=== PATIENT | female | born 1980 | race Caucasian/White ===

== ENCOUNTER 2017-11-28 22:22 | Emergency (ER) | payer SELFPAY ==
[2017-11-28] MEDS ORDERED: predniSONE 20 MG Tab PO ONE (23:15)
[2017-11-28] MEDS ORDERED: Cephalexin 500 MG Cap PO ONE (23:15)
--- NOTE | 2017-11-28 23:18 | EDM.PDOC ---
ED HPI GENERAL MEDICAL PROBLEM - General Chief Complaint: Skin Complaint Stated Complaint: RASH ON ANKLE Time Seen by Provider: 11/28/17 23:03 Source of Information: Reports: Patient, RN Notes Reviewed - History of Present Illness INITIAL COMMENTS - FREE TEXT/NARRATIVE: 36 show female comes in with severe rash left lower leg. This first came on about a week ago. This has been spreading and has been severely itchy the past several days. She has spent a lot of time hiking outdoors this past week so realizes that could be poison sha or some type similar contact dermatitis. No other areas of rash or itchiness. Left Lower Leg Pain Score (Numeric/FACES): 2 - Related Data Allergies Allergy/AdvReac Type Severity Reaction Status Date / Time No Known Allergies Allergy Verified 04/26/14 14:39 Home Meds: Home Meds Albuterol Sulfate [Proventil Hfa] 1 puff INH ASDIRECTED 11/28/17 [History] Cephalexin 500 mg PO Q8HR #20 capsule 11/28/17 [Rx] Past Medical History - Past Health History Medical/Surgical History: Denies Medical/Surgical History Respiratory History: Reports: Asthma, Other (See Below) Other Respiratory History: seasonal allergies - Past Surgical History HEENT Surgical History: Reports: Tonsillectomy Social & Family History - Tobacco Use Smoking Status *Q: Current Every Day Smoker Years of Tobacco use: 14 Packs/Tins Daily: 0.5 - Caffeine Use Caffeine Use: Reports: Coffee, Soda - Recreational Drug Use Recreational Drug Use: No ED ROS GENERAL - Review of Systems Review Of Systems: See Below Constitutional: Denies: Fever, Chills HEENT: Reports: No Symptoms Respiratory: Denies: Shortness of Breath Cardiovascular: Denies: Chest Pain GI/Abdominal: Denies: Abdominal Pain Musculoskeletal: Denies: Joint Pain Skin: Reports: Rash Neurological: Denies: Numbness, Tingling ED EXAM, SKIN/RASH Exam: See Below General Appearance: Alert, Mild Distress Head: Atraumatic Neck: Supple Respiratory/Chest: No Respiratory Distress Neurological: Alert, Oriented, No Motor/Sensory Deficits Skin: Rash (Scattered areas of rash left lower leg anteriorly and also medial and lateral. Some areas of linear streaking type distribution. This is somewhat raised. Can otherwise totally clear.) Course - Vital Signs Last Recorded V/S: Last Vital Signs Temp 98.1 F 11/28/17 22:50 Pulse 99 11/28/17 22:50 Resp 20 11/28/17 22:50 BP 152/83 H 11/28/17 22:50 Pulse Ox 100 11/28/17 22:50 - Orders/Labs/Meds Meds: Medications Discontinued Medications Generic Name Dose Route Start Last Admin Trade Name Biju PRN Reason Stop Dose Admin Cephalexin 500 mg 11/28/17 23:15 11/28/17 23:21 Keflex PO 11/28/17 23:16 500 mg ONETIME ONE Administration Prednisone 40 mg 11/28/17 23:15 11/28/17 23:22 Prednisone PO 11/28/17 23:16 40 mg ONETIME ONE Administration - Re-Assessments/Exams Free Text/Narrative Re-Assessment/Exam: 11/29/17 15:28 The character of rashes very strongly compatible with contact dermatitis, poison sha, poison oak or something of that nature. Have given prednisone 40 mg by mouth, discharge instructions as documented. Departure - Departure Time of Disposition: 23:15 Disposition: Home, Self-Care 01 Condition: Fair Clinical Impression: Contact dermatitis due to poison sha - Discharge Information Prescriptions: Cephalexin 500 mg PO Q8HR #20 capsule Instructions: Contact Dermatitis, [id number] Referrals: George Mccollum MD [Primary Care Provider] - Forms: ED Department Discharge Additional Instructions: prednisone 40 mg daily for 3 days, than 20 mg daily for 2 days, triamcinalone cream 2 to 3 times daily until rash resolves. claritin 10 mg daily, cephalexin 500 mg 3 times daily for 1 week.
== END 2017-11-28 23:41 | disposition home or self-care (01) ==
LOC: JD.ED 22:22
DX: L23.7 Allergic contact dermatitis due to plants, except food (principal); F17.210 Nicotine dependence, cigarettes, uncomplicated
CPT/HCPCS: 99283; A9270

== ENCOUNTER 2017-11-30 18:13 | Emergency (ER) | payer SELFPAY ==
[2017-11-30] MEDS ORDERED: Sodium Chloride 0.9% 10 ML Syringe FLUSH PRN (19:15)
--- NOTE | 2017-11-30 20:36 | EDM.PDOC ---
ED HPI GENERAL MEDICAL PROBLEM - General Chief Complaint: Skin Complaint Stated Complaint: JOHANNY BLANCA ANKLE SWOLLEN Time Seen by Provider: 11/30/17 18:56 Source of Information: Reports: Patient History Limitations: Reports: No Limitations - History of Present Illness INITIAL COMMENTS - FREE TEXT/NARRATIVE: 36-year-old female presents for evaluation and treatment of an erythematous blistering rash to the bilateral legs. Patient reports proximally 10 days ago she was out hiking in [place]. She states she was hiking through some brush. Of note she was hiking with her sister who does not have any rash. She states approximately 4 days later she developed a pruritic, erythematous rash to the left ankle. She was seen in the ED on November 28. Prescribed triamcinolone cream, prednisone and Keflex. She did not take the prednisone as she does not like the way it makes her feel. She has been taking the Keflex and using the triamcinolone cream as prescribed. She presented to the walk-in clinic today but was sent to us for further management and care. Patient reports the initial rash started to her left ankle. Reports it initially started as a pruritic, erythematous rash. Present now for approximately for 5 days. Over the last day she has no developed large blisters that are weeping a clear serous fluid. She is also having involvement to the right leg that is extending up her 5. Sits rashes no longer pruritic but is now painful. She also reports swelling to the left foot. She denies any fevers, chills, nausea or vomiting. She did she's never had anything like this before. Primary care provider is Dr. Wesley left lower leg Pain Score (Numeric/FACES): 6 - Related Data Allergies Allergy/AdvReac Type Severity Reaction Status Date / Time No Known Allergies Allergy Verified 11/30/17 18:34 Home Meds: Home Meds Albuterol Sulfate [Proventil Hfa] 1 puff INH ASDIRECTED 11/28/17 [History] Cephalexin 500 mg PO Q8HR #20 capsule 11/28/17 [Rx] Doxycycline [Vibramycin] 100 mg PO BID #19 cap 11/30/17 [Rx] LORazepam [Ativan] 0.5 mg PO Q6H PRN #20 tab 11/30/17 [Rx] Triamcinolone Acetonide [Triamcinolone Acetonide 0.025%] 15 gm .XX ASDIRECTED PRN 11/30/17 [History] predniSONE [Prednisone] 40 mg PO DAILY #40 tablet 11/30/17 [Rx] Past Medical History - Past Health History Medical/Surgical History: Denies Medical/Surgical History Respiratory History: Reports: Asthma, Other (See Below) Other Respiratory History: seasonal allergies Psychiatric History: Reports: Anxiety - Past Surgical History HEENT Surgical History: Reports: Tonsillectomy Social & Family History - Family History Family Medical History: Noncontributory - Tobacco Use Smoking Status *Q: Current Every Day Smoker Years of Tobacco use: 10 Packs/Tins Daily: 0.2 - Caffeine Use Caffeine Use: Reports: Coffee - Recreational Drug Use Recreational Drug Use: No ED ROS GENERAL - Review of Systems Review Of Systems: See Below Constitutional: Denies: Fever, Chills GI/Abdominal: Denies: Nausea, Vomiting Skin: Reports: Rash (left ankle and sporadically to the right leg, large blisters present. Weeping a serous-like fluid.) ED EXAM, SKIN/RASH Exam: See Below Exam Limited By: No Limitations General Appearance: Alert, WD/WN, No Apparent Distress Respiratory/Chest: No Respiratory Distress Cardiovascular: Normal Peripheral Pulses, Regular Rate, Rhythm Peripheral Pulses: 2+: Posterior Tibial (L), Posterior Tibial (R), Dorsalis Pedis (L), Dorsalis Pedis (R) Extremities: Normal Inspection, Other (mild swelling to the left foot) Neurological: Alert, Oriented, Normal Cognition Psychiatric: Normal Affect, Normal Mood Location, Skin: Lower Extremity, Right, Lower Extremity, Left Characteristics: Bullous (Approximately nickel size blisters to the left ankle with surrounding erythema. Increased warmth appreciated. Weeping a clear serous fluid. Approximately 8 large blisters present. Multiple smaller blisters. Negative Nikolsky sign. Right leg has several smaller bullous-like lesions sporadically from the right ankle to the right medial thigh.) Course - Vital Signs Last Recorded V/S: Last Vital Signs Temp 98.3 F 11/30/17 18:27 Pulse 80 11/30/17 21:35 Resp 18 11/30/17 21:35 BP 150/72 H 11/30/17 21:35 Pulse Ox 98 11/30/17 21:35 - Orders/Labs/Meds Orders: Active Orders 24 hr Category Date Time Status Peripheral IV Care [RC] . DIRECTED Care 11/30/17 19:15 Active Peripheral IV Insertion Adult [OM.PC] Routine Oth 11/30/17 19:15 Ordered Labs: Laboratory Tests 11/30/17 11/30/17 Range/Units 19:37 19:37 WBC 11.40 H (3.98-10.04) K/mm3 RBC 4.66 (3.98-5.22) M/mm3 Hgb 14.2 (11.2-15.7) gm/L Hct 43.8 (34.1-44.9) % MCV 94.0 (79.4-94.8) fl MCH 30.5 (25.6-32.2) pg MCHC 32.4 (32.2-35.5) g/dl RDW Std Deviation 44.9 (36.4-46.3) fL Plt Count 380 H (182-369) K/mm3 MPV 9.4 (9.4-12.3) fl Neutrophils % (Manual) 76 H (40-60) % Band Neutrophils % 0 (0-10) % Lymphocytes % (Manual) 20 (20-40) % Atypical Lymphs % 0 % Monocytes % (Manual) 3 (2-10) % Eosinophils % (Manual) 1 (0.7-5.8) % Basophils % (Manual) 0 L (0.1-1.2) Platelet Estimate Adequate RBC Morph Comment Normal Sodium 140 (136-145) mEq/L Potassium 4.3 (3.5-5.1) mEq/L Chloride 105 (98-107) mEq/L Carbon Dioxide 25 (21-32) mEq/L Anion Gap 14.3 (5-15) BUN 13 (7-18) mg/dL Creatinine 0.9 (0.55-1.02) mg/dL Est Cr Clr Drug Dosing 84.03 mL/min Estimated GFR (MDRD) > 60 (>60) mL/min BUN/Creatinine Ratio 14.4 (14-18) Glucose 96 (74-106) mg/dL Calcium 8.6 (8.5-10.1) mg/dL Total Bilirubin 0.4 (0.2-1.0) mg/dL AST 16 (15-37) U/L ALT 14 (14-59) U/L Alkaline Phosphatase 65 (46-116) U/L C-Reactive Protein 0.5 (<1.0) mg/dL Total Protein 7.4 (6.4-8.2) g/dl Albumin 3.6 (3.4-5.0) g/dl Globulin 3.8 gm/dL Albumin/Globulin Ratio 1.0 (1-2) Meds: Medications Discontinued Medications Generic Name Dose Route Start Last Admin Trade Name Freq PRN Reason Stop Dose Admin Doxycycline Hyclate 100 mg 11/30/17 21:08 11/30/17 21:14 Vibramycin PO 11/30/17 21:09 100 mg ONETIME ONE Administration Prednisone 40 mg 11/30/17 21:08 11/30/17 21:14 Prednisone PO 11/30/17 21:09 40 mg ONETIME ONE Administration Sodium Chloride 10 ml 11/30/17 19:15 11/30/17 19:41 Saline Flush FLUSH 10 ml ASDIRECTED PRN Administration Keep Vein Open - Re-Assessments/Exams Free Text/Narrative Re-Assessment/Exam: 11/30/17 21:06 Dr. Shiloh Tabares has come and seen the patient. Concerned that this is pemphigoid. Recommended obtaining lab work. as this was change or shift when she saw him recommended getting an opinion from Dr. Barton who is now on. Dr. Barton has come into the patient. He agrees with initial treatment plan and that this likely could be pemphigoid. Have attempted to contact dermatology in [place], both [facility] and [facility]. 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 Informed patient that she likely needs steroids. She is very hesitant to start these due to concerns over anxiety. Would like me to discuss with dermatology if she needs steroids. I discussed the case Dr. Pineda who is a business banking officer associated with [employer] in [place]. I was able to send him some pictures of the patient's. Working diagnosis is an exposure to plants versus pemphigoid. Recommended prednisone 40 mg daily until seen by dermatology. States that this patient needs to see dermatology this week. She needs a biopsy. Recommended involving her primary care provider as well to help with any dermatology referral as needed. I discussed my conversation with the patient. Her labs show a slightly elevated white blood cell count but CRP is within normal limits. she is agreeable to start on prednisone. I will give her some Ativan as needed. Plan will be to send a referral an attempt to get her an appointment with dermatology in the morning. Will also notify her primary care provider in the morning. I will also switch her from Keflex to doxycycline due to concerns over the surrounding erythema increasing. Dosage of prednisone and doxycycline given in the ED tonight Discharge instructions as documented. Departure - Departure Time of Disposition: 21:09 Disposition: Home, Self-Care 01 Condition: Fair Clinical Impression: Blistering rash - Discharge Information Prescriptions: Doxycycline [Vibramycin] 100 mg PO BID #19 cap LORazepam [Ativan] 0.5 mg PO Q6H PRN #20 tab PRN Reason: Anxiety predniSONE [Prednisone] 40 mg PO DAILY #40 tablet Instructions: Rash Referrals: George Mccollum MD [Primary Care Provider] - Naila Abbott MD [Ordering Only Provider] - Forms: ED Department Discharge Additional Instructions: take the doxycycine 1 cap bid x 10 days. Stop the cephalexin. Prednisone 40 mg by mouth daily. Take 40 mg until tapered off by dermatology. you need to see dermatology this week. Need to have a biopsy done this week. [facility] is [phone]. We will attempt to call them in the morning to make an appointment for you. We will attempt to notify Dr. Wesley tomorrow so he is aware of your urgent need to see dermatology as well and he can assist as needed. Ativan 1 tab every 6 hours as needed for anxiety. Please return to the ER for symptoms change or worsen. - My Orders Last 24 Hours: My Active Orders 11/30/17 19:15 Peripheral IV Care [RC] . DIRECTED Peripheral IV Insertion Adult [OM.PC] Routine - Assessment/Plan Last 24 Hours: My Active Orders 11/30/17 19:15 Peripheral IV Care [RC] . DIRECTED Peripheral IV Insertion Adult [OM.PC] Routine
[2017-11-30] MEDS ORDERED: Doxycycline 100 MG Cap PO ONE (21:08)
[2017-11-30] MEDS ORDERED: predniSONE 20 MG Tab PO ONE (21:08)
== END 2017-11-30 21:34 | disposition home or self-care (01) ==
LOC: JD.ED 18:13
DX: S80.822A Blister (nonthermal), left lower leg, initial encounter (principal); S80.821A Blister (nonthermal), right lower leg, initial encounter; Z79.899 Other long term (current) drug therapy; F17.210 Nicotine dependence, cigarettes, uncomplicated; X58.XXXA Exposure to other specified factors, initial encounter
CPT/HCPCS: 36415; 80053; 85007; 85027; 86140; 87070; 99284; A9270; J7050; 99283

== ENCOUNTER 2019-08-09 14:24 | Emergency (ER) | payer OTHER ==
[2019-08-09] MEDS ORDERED: LORazepam 0.5 MG Tab PO ONE (15:21)
[2019-08-09] MEDS ORDERED: Aspirin 81 MG Tab.Chew PO ONE (15:21)
--- NOTE | 2019-08-09 15:32 | EDM.PDOC ---
ED HPI GENERAL MEDICAL PROBLEM - General Chief Complaint: Chest Pain Stated Complaint: CHEST PAIN Time Seen by Provider: 08/09/19 15:12 Source of Information: Reports: Patient History Limitations: Reports: No Limitations - History of Present Illness INITIAL COMMENTS - FREE TEXT/NARRATIVE: Patient is a 38-year-old female who presents with complaints of midsternal chest pain radiating through to her back that started at approximately 1:00 this afternoon. She denies any shortness of breath, however states it is painful to take a deep breath. She is feeling mildly nauseous. There was no associated diaphoresis. She has no history of chest pain or cardiac abnormalities. States that she has been under a lot of stress lately and has been feeling highly anxious all day today. She has taken ibuprofen 600 mg and this did not affect the pain. She states that the pain is not constant but that it waxes and wanes. She does have a history of GERD and heartburn, however states that nothing she cannot control with Tums. She denies any recent illnesses. Middle Chest Pain Score (Numeric/FACES): 6 - Related Data Allergies Allergy/AdvReac Type Severity Reaction Status Date / Time No Known Allergies Allergy Verified 08/09/19 14:40 Home Meds: Home Meds Albuterol Sulfate [Proventil Hfa] 1 puff INH ASDIRECTED 11/28/17 [History] LORazepam [Ativan] 0.5 mg PO Q6H PRN #20 tab 11/30/17 [Rx] Cholecalciferol (Vitamin D3) [Vitamin D] 5,000 unit PO DAILY 08/09/19 [History] LORazepam [Ativan] 0.5 mg PO BID PRN #5 tablet 08/09/19 [Rx] Magnesium Amino Acid Chelate [Magnesium] 0 mg PO DAILY 08/09/19 [History] Past Medical History - Past Health History Medical/Surgical History: Denies Medical/Surgical History Cardiovascular History: Reports: None Respiratory History: Reports: Asthma, Other (See Below) Other Respiratory History: seasonal allergies Gastrointestinal History: Reports: None Genitourinary History: Reports: None 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 Musculoskeletal History: Reports: None Neurological History: Reports: None Psychiatric History: Reports: Anxiety Endocrine/Metabolic History: Reports: None Hematologic History: Reports: None Oncologic (Cancer) History: Reports: None Dermatologic History: Reports: None - Infectious Disease History Infectious Disease History: Reports: None - Past Surgical History HEENT Surgical History: Reports: Tonsillectomy Social & Family History - Family History Family Medical History: Noncontributory - Tobacco Use Smoking Status *Q: Current Every Day Smoker Years of Tobacco use: 15 Packs/Tins Daily: 0.5 - Caffeine Use Caffeine Use: Reports: Coffee - Recreational Drug Use Recreational Drug Use: No ED ROS GENERAL - Review of Systems Review Of Systems: Comprehensive ROS is negative, except as noted in HPI. ED EXAM, GENERAL - Physical Exam Exam: See Below Exam Limited By: No Limitations General Appearance: Alert, WD/WN, No Apparent Distress Respiratory/Chest: No Respiratory Distress, Lungs Clear, Normal Breath Sounds, No Accessory Muscle Use, Other (Tenderness to the left chest midclavicular line near the sixth intercostal space. Also tender to the left posterior thorax directly below the scapula.) Cardiovascular: Normal Peripheral Pulses, Regular Rate, Rhythm, No Edema, No Gallop, No JVD, No Murmur, No Rub Neurological: Alert, Oriented, CN II-XII Intact, Normal Cognition, Normal Gait, Normal Reflexes, No Motor/Sensory Deficits Psychiatric: Normal Affect, Normal Mood Skin Exam: Warm, Dry, Intact, Normal Color, No Rash EKG INTERPRETATION EKG Date: 08/09/19 Time: 15:30 Rhythm: NSR Rate (Beats/Min): 80 [place]: Normal P-Wave: Present QRS: Normal ST-T: Normal QT: Normal Course - Vital Signs Last Recorded V/S: Last Vital Signs Temp 99 F 08/09/19 16:52 Pulse 78 08/09/19 16:52 Resp 16 08/09/19 16:52 BP 132/79 08/09/19 16:52 Pulse Ox 99 08/09/19 16:52 - Orders/Labs/Meds Orders: Active Orders 24 hr Category Date Time Status EKG Documentation Completion [RC] STAT Care 08/09/19 15:21 Active Labs: Laboratory Tests 08/09/19 08/09/19 Range/Units 15:41 15:41 WBC 8.96 (3.98-10.04) K/mm3 RBC 4.96 (3.98-5.22) M/mm3 Hgb 15.0 (11.2-15.7) gm/dl Hct 46.2 H (34.1-44.9) % MCV 93.1 (79.4-94.8) fl MCH 30.2 (25.6-32.2) pg MCHC 32.5 (32.2-35.5) g/dl RDW Std Deviation 43.7 (36.4-46.3) fL Plt Count 340 (182-369) K/mm3 MPV 9.1 L (9.4-12.3) fl Neut % (Auto) 76.5 H (34.0-71.1) % Lymph % (Auto) 18.5 L (19.3-51.7) % [place] % (Auto) 4.4 L (4.7-12.5) % Eos % (Auto) 0.2 L (0.7-5.8) Baso % (Auto) 0.2 (0.1-1.2) % Neut # (Auto) 6.85 H (1.56-6.13) K/mm3 Lymph # (Auto) 1.66 (1.18-3.74) K/mm3 [place] # (Auto) 0.39 H (0.24-0.36) K/mm3 Eos # (Auto) 0.02 L (0.04-0.36) K/mm3 Baso # (Auto) 0.02 (0.01-0.08) K/mm3 Sodium 140 (136-145) mEq/L Potassium 4.4 (3.5-5.1) mEq/L Chloride 103 (98-107) mEq/L Carbon Dioxide 26 (21-32) mEq/L Anion Gap 15.4 H (5-15) BUN 9 (7-18) mg/dL Creatinine 0.7 (0.55-1.02) mg/dL Est Cr Clr Drug Dosing 105.97 mL/min Estimated GFR (MDRD) > 60 (>60) mL/min BUN/Creatinine Ratio 12.9 L (14-18) Glucose 94 (74-106) mg/dL Calcium 9.0 (8.5-10.1) mg/dL Total Bilirubin 0.4 (0.2-1.0) mg/dL AST 9 L (15-37) U/L ALT 11 L (14-59) U/L Alkaline Phosphatase 94 (46-116) U/L Troponin I < 0.017 (0.00-0.056) ng/mL C-Reactive Protein < 0.2 (<1.0) mg/dL Total Protein 7.4 (6.4-8.2) g/dl Albumin 4.1 (3.4-5.0) g/dl Globulin 3.3 gm/dL Albumin/Globulin Ratio 1.2 (1-2) Meds: Medications Discontinued Medications Generic Name Dose Route Start Last Admin Trade Name Biju PRN Reason Stop Dose Admin Aspirin 324 mg 08/09/19 15:21 08/09/19 15:32 Aspirin PO 08/09/19 15:22 324 mg ONETIME ONE Administration Lorazepam 0.5 mg 08/09/19 15:21 08/09/19 15:32 Ativan PO 08/09/19 15:22 0.5 mg ONETIME ONE Administration - Re-Assessments/Exams Free Text/Narrative Re-Assessment/Exam: Based on exam and patient history, my suspicion is that pain is likely musculoskeletal in nature and may be associated with her increased anxiety. Nonetheless, we will complete a cardiac work-up to include a CBC, CMP, CRP, troponin, chest x-ray, and EKG. We will give 324 of chewable aspirin. I will also give her Ativan 0.5 p.o. at this time. 08/09/19 16:24 Patient's work-up was grossly unremarkable. She did verbalize improvement in her with the Ativan. Patient states that she has been prescribed Ativan in the past, however she never taken it. I will send her a prescription for 5 tabs of Ativan to be used as needed and recommend that she follow-up with her primary care provider. Discharge instructions as documented. Departure - Departure Time of Disposition: 16:30 Disposition: Home, Self-Care 01 Condition: Fair Clinical Impression: Atypical chest pain, Anxiety Prescriptions: LORazepam [Ativan] 0.5 mg PO BID PRN #5 tablet PRN Reason: Anxiety Instructions: Nonspecific Chest Pain, [id number] Referrals: George Mccollum MD [Primary Care Provider] - Forms: ED Department Discharge Additional Instructions: You were seen in the emergency department today for chest pain that radiates to your back. A cardiac work-up was completed including blood work, EKG, and chest x-ray. This was found to be normal. While in the emergency department you were given a dose of Ativan which you state did help her chest pain. As we discussed, the pain you are having is likely muscle spasms between your ribs. Recommend that you use [id number] Tylenol or ibuprofen as needed for pain. A prescription for Ativan, 5 tabs, has been sent to [facility]. Uses as needed for increased anxiety. If you find that this is an ongoing issue for you, I would recommend that you follow-up with a primary care provider to get put on a long-acting anxiety medication. If you experience any worsening symptoms, please do not hesitate to return to the emergency department. Sepsis Event Note - Evaluation Sepsis Screening Result: No Definite Risk - Focused Exam Vital Signs: Vital Signs Temp Pulse Resp BP Pulse Ox 08/09/19 16:52 99 F 78 16 132/79 99 08/09/19 16:29 78 16 134/87 96 08/09/19 14:38 98.9 F 97 16 145/93 H 98 Date Exam was Performed: 08/09/19 Time Exam was Performed: 22:17 - My Orders Last 24 Hours: My Active Orders 08/09/19 15:21 EKG Documentation Completion [RC] STAT - Assessment/Plan Last 24 Hours: My Active Orders 08/09/19 15:21 EKG Documentation Completion [RC] STAT
--- NOTE | 2019-08-09 16:09 | CR ---
Chest: 2 views of the chest were obtained. Comparison: Prior chest x-ray of 04/26/14. Heart size and mediastinum are normal. Lungs are clear with no acute parenchymal change. Bony structures are unremarkable. Impression: 1. Nothing acute is appreciated on 2 view chest x-ray. Diagnostic code #1 This report was dictated in [place] Standard Time
== END 2019-08-09 16:52 | disposition home or self-care (01) ==
LOC: JD.ED 14:24
DX: R07.89 Other chest pain (principal); F41.9 Anxiety disorder, unspecified; J45.909 Unspecified asthma, uncomplicated; F17.210 Nicotine dependence, cigarettes, uncomplicated; Z79.899 Other long term (current) drug therapy
CPT/HCPCS: 36415; 71046; 80053; 84484; 85025; 86140; 93005; 99285; A9270; 93010; 99284

== ENCOUNTER 2021-04-02 16:47 | Emergency (ER) | payer MEDICAID, OTHER ==
--- NOTE | 2021-04-02 18:04 | EDM.PDOC ---
ED HPI GENERAL MEDICAL PROBLEM - General Chief Complaint: Chest Pain Stated Complaint: CHEST PAIN/COVID + Time Seen by Provider: 04/02/21 17:17 Source of Information: Reports: Patient, RN Notes Reviewed - History of Present Illness INITIAL COMMENTS - FREE TEXT/NARRATIVE: 40 yr old female had onset of cough, chills, Hodgson about 4 to 5 days ago. Has had mild chest tightness and some other myalgias as well. Was at the clinic, checking out possibility of infusion this afternoon. When chest pain was mentioned she was referred here. She has not been short of breath. No vomiting or diarrhea. Hodgson has been her worst symptom. Has not been vaccinated. Middle Chest Pain Score (Numeric/FACES): 2 - Related Data Allergies Allergy/AdvReac Type Severity Reaction Status Date / Time No Known Allergies Allergy Verified 04/02/21 17:14 Home Meds: Home Meds Albuterol Sulfate [Proventil Hfa] 1 puff INH ASDIRECTED PRN 11/28/17 [History] Past Medical History - Past Health History Medical/Surgical History: Denies Medical/Surgical History Cardiovascular History: Reports: None Respiratory History: Reports: Asthma, Other (See Below) Other Respiratory History: seasonal allergies Gastrointestinal History: Reports: None Genitourinary History: Reports: None [employer]ATOR History: Reports: None Musculoskeletal History: Reports: None Neurological History: Reports: None Psychiatric History: Reports: Anxiety Endocrine/Metabolic History: Reports: None Hematologic History: Reports: None Oncologic (Cancer) History: Reports: None Dermatologic History: Reports: None - Infectious Disease History Infectious Disease History: Reports: Novel Coronavirus - Past Surgical History HEENT Surgical History: Reports: Tonsillectomy Social & Family History - Family History Family Medical History: No Pertinent Family History - Tobacco Use Tobacco Use Status *Q: Current Every Day Tobacco User Years of Tobacco use: 15 Packs/Tins Daily: 0.5 - Caffeine Use Caffeine Use: Reports: Coffee, Soda - Recreational Drug Use Recreational Drug Use: No ED ROS GENERAL - Review of Systems Review Of Systems: See Below Constitutional: Reports: Fever, Chills HEENT: Reports: Rhinitis (mild). Denies: Throat Pain Respiratory: Reports: Cough. Denies: Shortness of Breath, Wheezing Cardiovascular: Reports: Chest Pain GI/Abdominal: Denies: Abdominal Pain, Nausea, Vomiting Musculoskeletal: Reports: Other (mild myalgias) Skin: Reports: No Symptoms Neurological: Reports: Headache ED EXAM, GENERAL - Physical Exam Exam: See Below General Appearance: Alert, No Apparent Distress Nose: Normal Inspection Head: Atraumatic Neck: Supple Respiratory/Chest: No Respiratory Distress, Lungs Clear, Normal Breath Sounds, No Accessory Muscle Use. No: Rhonchi, Wheezing Cardiovascular: Regular Rate, Rhythm Extremities: Normal Inspection. No: Leg Pain Neurological: Alert, Oriented, No Motor/Sensory Deficits Skin Exam: Warm, Dry, Normal Color, No Rash Course - Vital Signs Last Recorded V/S: Last Vital Signs Temp 96.7 F L 04/02/21 17:11 Pulse 71 04/02/21 17:11 Resp 16 04/02/21 17:11 BP 133/99 H 04/02/21 17:11 Pulse Ox 99 04/02/21 17:11 - Orders/Labs/Meds Orders: Active Orders 24 hr Category Date Time Status Chest 1V Frontal [CR] Stat Exams 04/02/21 17:27 Taken - Re-Assessments/Exams Free Text/Narrative Re-Assessment/Exam: 04/02/21 18:51 CXR is clear, no infiltrate. EKG does not show any acute findings. Mild asthma is her only underlying medical condition. That is occasional exercise induced, has not been a major problem for her. She is very borderline to even qualify with no other underlying medical problems and although ill her covid is fairly mild at this time. She is not a bit overweight, BMI 25. I did discuss risk/benifits of monoclonal antibody infusion with all of this in mind. She decided to not get the infusion at this time with the understanding that if symptoms get a lot worse we are in the window up until 10 days. Departure - Departure Time of Disposition: 18:00 Disposition: Home, Self-Care 01 Condition: Fair Clinical Impression: COVID-19 virus infection - Discharge Information Instructions: 10 Things You Can Do to Manage Your COVID-19 Symptoms at Home - [facility] (01/03/2021) Referrals: George Mccollum MD [Primary Care Provider] - Forms: ED Department Discharge Additional Instructions: Rest. Continue isolation at home for at least 10 days from onset of symptoms. Alternate tylenol and ibuprofen as needed. Drink plenty of fluids to maintain hydration. Your EKG today looks good, your oxygen is running 98 to 100 % and your CXR is clear at this time. Return to ED as needed if symptoms worsening in any way. Sepsis Event Note (ED) - Evaluation Sepsis Screening Result: No Definite Risk - Focused Exam Vital Signs: Vital Signs Temp Pulse Resp BP Pulse Ox 04/02/21 17:11 96.7 F L 71 16 133/99 H 99 - My Orders Last 24 Hours: My Active Orders 04/02/21 17:27 Chest 1V Frontal [CR] Stat - Assessment/Plan Last 24 Hours: My Active Orders 04/02/21 17:27 Chest 1V Frontal [CR] Stat
--- NOTE | 2021-04-02 19:09 | CR ---
Chest: Frontal view of the chest was obtained. Comparison: Prior chest x-ray of 08/09/19. Heart size and mediastinum are normal. Lungs are clear with no acute parenchymal change. No acute osseous abnormality is appreciated. Impression: 1. Nothing acute is seen on frontal chest x-ray. Diagnostic code #1
== END 2021-04-02 18:15 | disposition home or self-care (01) ==
LOC: JD.ED 16:47
DX: U07.1 COVID-19 (principal); J45.909 Unspecified asthma, uncomplicated; Z72.0 Tobacco use
CPT/HCPCS: 71045; 71045-26; 93005; 99284-25

== ENCOUNTER 2022-04-30 06:51 | Emergency (ER) | payer BC, MEDICAID ==
[2022-04-30] MEDS ORDERED: Acetaminophen/HYDROcodone 325-5 MG Tab PO ONE (07:45)
== END 2022-04-30 09:40 | disposition home or self-care (01) ==
LOC: JD.ED 06:51
DX: S63.92XA Sprain of unspecified part of left wrist and hand, initial encounter (principal); M25.512 Pain in left shoulder; F17.210 Nicotine dependence, cigarettes, uncomplicated; Z88.1 Allergy status to other antibiotic agents; W01.0XXA Fall on same level from slipping, tripping and stumbling without subsequent striking against object, initial encounter
CPT/HCPCS: 73030; 73110; 99283; A9270

== ENCOUNTER 2022-06-16 19:41 | Emergency (ER) | payer BC | END 2022-06-17 01:42 | disposition home or self-care (01) | LOC: JD.ED 19:41 | DX: N93.9 Abnormal uterine and vaginal bleeding, unspecified (principal); F17.210 Nicotine dependence, cigarettes, uncomplicated; Z91.040 Latex allergy status; Z88.1 Allergy status to other antibiotic agents | CPT/HCPCS: 76830; 76830-26; 81003; 81025; 99284 ==

== ENCOUNTER 2022-08-17 20:53 | Emergency (ER) | payer BC | END 2022-08-18 00:38 | disposition home or self-care (01) | LOC: JD.ED 20:53 | DX: M54.9 Dorsalgia, unspecified (principal); J45.909 Unspecified asthma, uncomplicated; Z91.040 Latex allergy status; Z88.1 Allergy status to other antibiotic agents; Z86.16 Personal history of COVID-19 | CPT/HCPCS: 36415; 80053; 81001; 81003; 85025; 87086; 99283; 99284 ==